=== PATIENT | female | born 1945 | race Caucasian/White ===

== ENCOUNTER 2024-01-28 10:42 | Observation (INO) | payer OTHER, MEDICARE ==
[2024-01-28 10:51] VITALS: RESP 18; BMI 25.8
[2024-01-28 12:44] LABS: BASO % 0.5 % (0-2.0); EOS % 3.9 % (0-4.5); HEMOGLOBIN 10.9 GM/dL (10.7-15.3); LYMPH % 19.7 % (8-40); MCH 31.5 pg (25.7-33.7); MCHC 33.1 g/dl (32.0-36.0); MEAN PLT VOLUME 7.6 fl (7.5-11.1); MONO % 6.8 % (3.8-10.2); NEUT % 69.1 % (42.8-82.8); PLATELET COUNT 235 10^3/uL (134-434); RBC 3.48 M/mm3 (3.60-5.2); RDW 13.5 % (11.6-15.6); WHITE BLOOD COUNT 7.3 K/mm3 (4.0-10.0)
[2024-01-28 12:53] LABS: INR 1.06 (0.83-1.09); PROTHROMBIN TIME (PATIENT) 12.3 SEC (9.7-13.0)
[2024-01-28 12:56] LABS: POTASSIUM 4.5 mmol/L (3.5-5.1)
[2024-01-28 12:58] LABS: ALBUMIN 2.9 g/dl (3.4-5.0); CALCIUM 9.1 mg/dL (8.5-10.1)
[2024-01-28 13:02] LABS: CREATININE 1.1 mg/dL (0.55-1.3)
[2024-01-28 13:03] LABS: BILIRUBIN,TOTAL 0.3 mg/dL (0.2-1); TOT PROT 6.3 g/dl (6.4-8.2)
[2024-01-28 14:36] LABS: PH,URINE 8.5 (5.0-8.0); URINE APPEARANCE CLEAR; URINE BILIRUBIN NEGATIVE (NEGATIVE); URINE COLOR YELLOW; URINE GLUCOSE (UA) NEGATIVE (NEGATIVE); URINE KETONE NEGATIVE (NEGATIVE); URINE LEUK ESTERASE NEGATIVE (NEGATIVE); URINE NITRITE NEGATIVE (NEGATIVE); URINE PROTEIN NEGATIVE (NEGATIVE)
[2024-01-28] MEDS: POLYETHYLENE GLYCOL (HEALTHYLAX) 3350 17 GM PACKET PO SCH (21:36)
[2024-01-28] MEDS: INSULIN ASPART SLIDING SCALE (NOVOLOG) 1 VIAL SQ SCH (21:36)
[2024-01-28] MEDS: CITALOPRAM HYDROBROMIDE 20 MG TABLET PO SCH (21:36)
[2024-01-29] MEDS: ENOXAPARIN NA (PORCINE) 40 MG/0.4 ML DISP.SYRIN SQ SCH (09:29)
[2024-01-29 10:00] LABS: BASO % 0.6 % (0-2.0); EOS % 4.4 % (0-4.5); HEMATOCRIT 34.3 % (32.4-45.2); HEMOGLOBIN 11.6 GM/dL (10.7-15.3); LYMPH % 27.5 % (8-40); MCH 31.9 pg (25.7-33.7); MCHC 33.8 g/dl (32.0-36.0); MEAN CELL VOLUME 94.2 fl (80-96); MEAN PLT VOLUME 7.9 fl (7.5-11.1); NEUT % 60.5 % (42.8-82.8); PLATELET COUNT 250 10^3/uL (134-434); RBC 3.64 M/mm3 (3.60-5.2); RDW 13.6 % (11.6-15.6); WHITE BLOOD COUNT 8.3 K/mm3 (4.0-10.0)
[2024-01-29 10:25] LABS: POTASSIUM 4.4 mmol/L (3.5-5.1)
[2024-01-29 10:28] LABS: CALCIUM 9.1 mg/dL (8.5-10.1)
[2024-01-29 10:29] LABS: BLOOD UREA NITROGEN 22.8 mg/dL (7-18); MAGNESIUM 1.8 mg/dL (1.8-2.4)
[2024-01-29 10:32] LABS: CREATININE 1.2 mg/dL (0.55-1.3); PHOSPHOROUS 3.1 mg/dL (2.5-4.9)
[2024-01-29 10:33] LABS: TOT PROT 6.6 g/dl (6.4-8.2)
[2024-01-29 10:34] LABS: BILIRUBIN,TOTAL 0.5 mg/dL (0.2-1)
[2024-01-29 14:19] VITALS: BP 106/52; PULSE 57; TEMP 98.9
== END 2024-01-29 16:45 | disposition home or self-care (01) ==
LOC: JER 10:42 → JERBED 17:08 → J5S 20:36
PROVIDERS: ADMIT Internal Medicine
DX: R42 Dizziness and giddiness (principal); R26.81 Unsteadiness on feet; F41.9 Anxiety disorder, unspecified; E11.9 Type 2 diabetes mellitus without complications; Z87.891 Personal history of nicotine dependence; K59.00 Constipation, unspecified; R29.6 Repeated falls
CPT/HCPCS: 36415; 70450-TC; 71046-TC-FY; 80053; 81003; 82962; 83735; 84100; 84443; 84484; 85025; 85610; 85730; 87086; 93005; 93010; 97116-GP; 97161-GP; 99285-25; G0378

== ENCOUNTER 2024-10-30 15:21 | Emergency (ER) | payer OTHER, MEDICARE ==
[2024-10-30 15:39] VITALS: TEMP 98.4; BMI 25.4
[2024-10-30] MEDS ORDERED: ALBUTEROL SO4 2.5/IPRATROPIUM 0.5 INH SOL 3 ML VIAL.NEB. NEB ONE (17:59)
[2024-10-30 18:02] LABS: BASO % 0.6 % (0-2.0); EOS % 3.6 % (0-4.5); LYMPH % 23.1 % (8-40); MCHC 33.2 g/dl (32.0-36.0); MEAN CELL VOLUME 93.5 fl (80-96); MEAN PLT VOLUME 7.4 fl (7.5-11.1); MONO % 5.7 % (3.8-10.2); PLATELET COUNT 283 10^3/uL (134-434); RBC 3.53 M/mm3 (3.60-5.2); RDW 14.1 % (11.6-15.6); WHITE BLOOD COUNT 7.6 K/mm3 (4.0-10.0)
[2024-10-30] MEDS: ALBUTEROL SO4 2.5/IPRATROPIUM 0.5 INH SOL 3 ML VIAL.NEB. NEB ONE (18:04)
[2024-10-30 18:26] LABS: POTASSIUM 4.2 mmol/L (3.5-5.1)
[2024-10-30 18:27] LABS: CALCIUM 9.3 mg/dL (8.5-10.1)
[2024-10-30 18:28] LABS: ALBUMIN 3.2 g/dl (3.4-5.0)
[2024-10-30 18:31] LABS: CREATININE 1.3 mg/dL (0.55-1.3)
[2024-10-30 18:33] LABS: TOT PROT 7.2 g/dl (6.4-8.2)
[2024-10-30 18:38] LABS: BILIRUBIN,TOTAL 0.2 mg/dL (0.2-1)
[2024-10-30] MEDS ORDERED: DOXYCYCLINE HYCLATE 100 MG CAPSULE PO ONE ×2 (19:02→19:20)
[2024-10-30 19:40] VITALS: BP 111/71; PULSE 74; RESP 18
== END 2024-10-30 19:41 | disposition home or self-care (01) ==
LOC: JER 15:21
PROC: 3E0F7GC Introduction of Other Therapeutic Substance into Respiratory Tract, Via Natural or Artificial Opening (ICD-10-PCS; principal; 2024-10-30)
DX: R05.9 Cough, unspecified (principal); Z20.822 Contact with and (suspected) exposure to COVID-19
CPT/HCPCS: 0241U-QW; 36415; 71046-TC-FY; 80053; 85025; 93005; 93010; 99285-25